=== PATIENT | male | born 1960 | race Caucasian/White ===

== ENCOUNTER → 2016-08-24 | Outpatient (CLI) | payer BC ==
[2016-08-24 17:21] LABS: FREE T4 (FREE THYROXINE) 1.14 ng/dL (0.93-1.71)
== END ==
LOC: LAB 15:37
PROVIDERS: ATTEND Family Medicine
DX: E03.9 Hypothyroidism, unspecified (principal)
CPT/HCPCS: 36415; 84439; 84443

== ENCOUNTER → 2016-09-15 | Outpatient (CLI) | payer BC ==
[2016-09-15 16:25] LABS: BASOPHILS # (AUTO) 0.02 10*3/UL; BASOPHILS % (AUTO) 0.3 % (0-1); EOSINOPHILS % (AUTO) 4.8 % (0-8); HEMATOCRIT 40.7 % (42.0-52.0); HEMOGLOBIN 13.9 g/dL (14.0-18.0); IMM GRAN % (AUTO) 0.2 % (0-5); IMM GRAN# (AUTO) 0.01 10*3/UL; LYMPHOCYTES # (AUTO) 1.88 10*3/uL; MEAN CORPUSCULAR HEMOGLOBIN 32.9 PG (27-31); MEAN CORPUSCULAR HGB CONC 34.2 g/dL (33-37); MEAN PLATELET VOLUME 10.3 FL (7.4-12.2); MONOCYTES # (AUTO) 0.56 10*3/UL (0.3-0.8); MONOCYTES % (AUTO) 9.5 % (5-15); NEUTROPHILS # (AUTO) 3.12 10*3/UL; NEUTROPHILS % (AUTO) 53.2 % (50-80); RDW COEFFICIENT OF VARIATION 13.7 % (11.5-14.5); RED BLOOD COUNT 4.23 10^6/uL (4.70-6.10); WHITE BLOOD COUNT 5.87 10^3/uL (4.8-10.8)
[2016-09-15 16:36] LABS: PLATELET MORPHOLOGY COMMENT NORMAL MORPHOLOGY (NORM)
== END ==
LOC: LAB 15:48
PROVIDERS: ATTEND Internal Medicine
DX: E83.119 Hemochromatosis, unspecified (principal)
CPT/HCPCS: 36415; 82728; 85025

== ENCOUNTER → 2016-09-16 | Outpatient (CLI) | payer BC ==
--- NOTE | 2016-09-16 16:07 | EKG ---
[address] [address] Measurements Intervals Gay Rate: 45 P: 21 SC: 168 QRS: 33 QRSD: 88 T: 28 QT: 457 QTc: 413 Interpretive Statements SINUS BRADYCARDIA Compared to ECG 04/04/2015 10:57:05 T-wave abnormality no longer present Electronically Signed On 09-17-16 12:06:18 MST by Adam Biswas MD [email or web address]
== END ==
LOC: EKG 15:50
PROVIDERS: ATTEND Family Medicine
DX: R00.1 Bradycardia, unspecified (principal)
CPT/HCPCS: 93005; 93010

== ENCOUNTER → 2016-11-10 | Outpatient (CLI) | payer BC ==
[2016-11-10 17:00] LABS: FREE T4 (FREE THYROXINE) 0.86 ng/dL (0.93-1.71)
== END ==
LOC: LAB 15:56
PROVIDERS: ATTEND Family Medicine
DX: E03.9 Hypothyroidism, unspecified (principal)
CPT/HCPCS: 36415; 84439; 84443

== ENCOUNTER → 2017-01-14 | Outpatient (CLI) | payer BC ==
[2017-01-14 15:02] LABS: FREE T4 (FREE THYROXINE) 1.13 ng/dL (0.93-1.71)
== END ==
LOC: LAB 10:59
PROVIDERS: ATTEND Family Medicine
DX: E03.9 Hypothyroidism, unspecified (principal)
CPT/HCPCS: 36415; 84439; 84443